=== PATIENT | female | born 1970 | race Caucasian/White ===

== ENCOUNTER 2020-10-20 12:45 | Emergency (ER) | payer SELFPAY ==
[2020-10-20] MEDS ORDERED: Sodium Chloride 0.9% 10 ML Syringe FLUSH PRN (13:03)
[2020-10-20 13:19] VITALS: PULSE 94
--- NOTE | 2020-10-20 13:24 | EDM.PDOC ---
ED HPI GENERAL MEDICAL PROBLEM - General Chief Complaint: Abdominal Pain Stated Complaint: STOMACH AND CHEST PAIN Time Seen by Provider: 10/20/20 12:55 Source of Information: Reports: Patient History Limitations: Reports: No Limitations - History of Present Illness INITIAL COMMENTS - FREE TEXT/NARRATIVE: presented to the ER with a c/o stomach pain - started last night - progressively getting worse. Worse with movement no N/D/V, but loss of appetite. patient has a h/o gastric lap band > 8 years ago. Also take ibuprofen and Oxycodone for chronic pain. no fever or chills. h/o cholecystectomy. No change in stools. Onset: Sudden Duration: Day(s): (1) Location: Reports: Abdomen Quality: Reports: Sharp Severity: Moderate Improves with: Reports: None Worsens with: Reports: Movement Associated Symptoms: Reports: Loss of Appetite Abdominal Pain Score (Numeric/FACES): 9 - Related Data Allergies Allergy/AdvReac Type Severity Reaction Status Date / Time morphine Allergy Facial Verified 10/20/20 13:11 Swelling Sulfa (Sulfonamide Allergy Hives Verified 10/20/20 13:11 Antibiotics) bee sting Allergy Difficulty Uncoded 10/20/20 13:15 Breathing Home Meds: Home Meds Ibuprofen 800 mg PO TID 11/15/13 [History] Hydrocodone/Acetaminophen [Hydrocodon-Acetaminophen 5-325] 1 each PO Q4H PRN 10/20/20 [History] Past Medical History HEENT History: Reports: Impaired Vision Cardiovascular History: Reports: Other (See Below) Other Cardiovascular History: allergies TECHNICAL ASST History: Reports: Musculoskeletal History: Reports: Back Pain, Chronic Other Musculoskeletal History: increased pain and inability to use right hand Neurological History: Reports: Headaches, Chronic, Migraines Psychiatric History: Reports: Anxiety, Depression Immunologic History: Reports: SLE - Infectious Disease History Infectious Disease History: Reports: Chicken Pox - Past Surgical History GI Surgical History: Reports: Appendectomy, Bariatric Procedure, Cholecystectomy Female Surgical History: Reports: Salpingo-Oophorectomy, Tubal Ligation Social & Family History - Family History Family Medical History: No Pertinent Family History - Living Situation & Occupation Occupation: Employed ED ROS GENERAL - Review of Systems Review Of Systems: See Below Constitutional: Reports: No Symptoms HEENT: Reports: No Symptoms Respiratory: Reports: No Symptoms Cardiovascular: Reports: No Symptoms GI/Abdominal: Reports: Abdominal Pain, Anorexia, Decreased Appetite. Denies: Black Stool, Bloody Stool, Diarrhea : Reports: No Symptoms Musculoskeletal: Reports: No Symptoms Skin: Reports: No Symptoms Neurological: Reports: No Symptoms ED EXAM, GI/ABD - Physical Exam Exam: See Below Exam Limited By: No Limitations General Appearance: Alert, WD/WN, Anxious, Mild Distress Eyes: Bilateral: EOMI Throat/Mouth: Normal Inspection Head: Atraumatic Neck: Normal Inspection Respiratory/Chest: No Respiratory Distress, Lungs Clear Cardiovascular: Normal Peripheral Pulses, Regular Rate, Rhythm GI/Abdominal Exam: Soft, No Distention, Tender (mild epigastric ) Back Exam: Normal Inspection, Full Range of Motion Extremities: Normal Inspection, Normal Range of Motion, Non-Tender Neurological: Alert, Oriented, Normal Cognition, No Motor/Sensory Deficits Psychiatric: Normal Affect, Anxious #1 Interpretation EKG Date: 10/20/20 Rhythm: NSR Sen[place]: Normal P-Wave: Present QRS: Normal ST-T: Normal QT: Normal Course - Vital Signs Last Recorded V/S: Last Vital Signs Temp 36.9 C 10/20/20 12:50 Pulse 94 10/20/20 15:30 Resp 16 10/20/20 15:30 BP 151/85 H 10/20/20 15:30 Pulse Ox 97 10/20/20 15:30 - Orders/Labs/Meds Orders: Active Orders 24 hr Category Date Time Status EKG Documentation Completion [RC] ASDIRECTED Care 10/20/20 13:03 Active Abdomen Pelvis wo Cont [CT] Stat Exams 10/20/20 14:20 Taken Chest 1V Frontal [CR] Stat Exams 10/20/20 13:11 Taken KUB [Abdomen 1V Flat] [CR] Stat Exams 10/20/20 13:11 Taken CORONAVIRUS COVID-19 RAPID [MOLEC] Stat Lab 10/20/20 16:43 Ordered Sodium Chloride 0.9% [Normal Saline] 1,000 ml Med 10/20/20 14:15 Active IV ASDIRECTED Sodium Chloride 0.9% [Saline Flush] Med 10/20/20 13:03 Active 10 ml FLUSH ASDIRECTED PRN Saline Lock Insert [OM.PC] Routine Oth 10/20/20 13:03 Ordered Medication Orders Sodium Chloride (Normal Saline) 1,000 mls @ 999 mls/hr IV ASDIRECTED EDIS Last Admin: 10/20/20 14:39 Dose: 999 mls/hr Documented by: TAO Sodium Chloride (Sodium Chloride 0.9% 10 Ml Syringe) 10 ml FLUSH ASDIRECTED PRN PRN Reason: Keep Vein Open Labs: Laboratory Tests 10/20/20 10/20/20 10/20/20 Range/Units 13:00 13:20 13:20 WBC 10.1 (4.0-11.0) K/uL RBC 3.23 L (3.80-5.80) M/uL Hgb 10.8 L (11.5-16.5) g/dL Hct 30.3 L (37.0-47.0) % MCV 94 (76-96) fL MCH 33.4 H (27.0-32.0) pg MCHC 35.6 H (31.0-35.0) g/dL RDW 12.1 (11.0-16.0) % Plt Count 341 D (150-500) K/uL MPV 8.6 (6.0-10.0) fL Sodium 129 L (136-145) mmol/L Potassium 4.2 (3.5-5.1) mmol/L Chloride 97 L (98-107) mmol/L Carbon Dioxide 23.1 (21.0-32.0) mmol/L Anion Gap 13.1 (5.0-15.0) mmol/L BUN 11 (8-26) mg/dL Creatinine 0.88 D (0.55-1.02) mg/dL Est Cr Clr Drug Dosing 56.43 mL/min Estimated GFR (MDRD) > 60 (>60) MLS/MIN BUN/Creatinine Ratio 12.5 (6-25) Glucose 96 (74-100) mg/dL Lactic Acid (0.4-2.0) mmol/L Calcium 8.8 (8.5-10.1) mg/dL Lactate Dehydrogenase 219 (81-234) U/L Troponin I < 0.017 (0.000-0.060) ng/mL Lipase 55 L (73-393) U/L Urine Color Urine Appearance (CLEAR) Urine pH (5.0-8.0) Ur Specific Warriors Mark (1.003-1.030) Urine Protein (NEGATIVE) mg/dL Urine Glucose (UA) (NEGATIVE) mg/dL Urine Ketones (NEGATIVE) mg/dL Urine Occult Blood (NEGATIVE) Urine Nitrite (NEGATIVE) Urine Bilirubin (NEGATIVE) Urine Urobilinogen (0.2-1.0) E.U./dL Ur Leukocyte Esterase (NEGATIVE) 10/20/20 10/20/20 Range/Units 13:50 14:20 WBC (4.0-11.0) K/uL RBC (3.80-5.80) M/uL Hgb (11.5-16.5) g/dL Hct (37.0-47.0) % MCV (76-96) fL MCH (27.0-32.0) pg MCHC (31.0-35.0) g/dL RDW (11.0-16.0) % Plt Count (150-500) K/uL MPV (6.0-10.0) fL Sodium (136-145) mmol/L Potassium (3.5-5.1) mmol/L Chloride (98-107) mmol/L Carbon Dioxide (21.0-32.0) mmol/L Anion Gap (5.0-15.0) mmol/L BUN (8-26) mg/dL Creatinine (0.55-1.02) mg/dL Est Cr Clr Drug Dosing mL/min Estimated GFR (MDRD) (>60) MLS/MIN BUN/Creatinine Ratio (6-25) Glucose (74-100) mg/dL Lactic Acid 0.9 (0.4-2.0) mmol/L Calcium (8.5-10.1) mg/dL Lactate Dehydrogenase (81-234) U/L Troponin I (0.000-0.060) ng/mL Lipase (73-393) U/L Urine Color Yellow Urine Appearance Clear (CLEAR) Urine pH 6.0 (5.0-8.0) Ur Specific Warriors Mark 1.020 (1.003-1.030) Urine Protein Negative (NEGATIVE) mg/dL Urine Glucose (UA) Negative (NEGATIVE) mg/dL Urine Ketones Trace H (NEGATIVE) mg/dL Urine Occult Blood Negative (NEGATIVE) Urine Nitrite Negative (NEGATIVE) Urine Bilirubin Small H (NEGATIVE) Urine Urobilinogen 0.2 (0.2-1.0) E.U./dL Ur Leukocyte Esterase Negative (NEGATIVE) Meds: Medications Generic Name Dose Route Start Last Admin Trade Name Desiree PRN Reason Stop Dose Admin Sodium Chloride 1,000 mls @ 999 mls/hr 10/20/20 14:15 10/20/20 14:39 Normal Saline IV 999 mls/hr ASDIRECTED EDIS Administration Sodium Chloride 10 ml 10/20/20 13:03 Sodium Chloride 0.9% 10 Ml Syringe FLUSH ASDIRECTED PRN Keep Vein Open Discontinued Medications Generic Name Dose Route Start Last Admin Trade Name Desiree PRN Reason Stop Dose Admin Al Hydroxide/Mg Hydroxide 30 ml 10/20/20 13:10 10/20/20 13:30 Gi Cocktail Oral Solution 30 Ml PO 10/20/20 13:11 30 ml ONETIME ONE Administration Hydromorphone HCl 0.5 mg 10/20/20 15:13 10/20/20 15:30 Hydromorphone 2 Mg/Ml Sdv IVPUSH 10/20/20 15:14 0.5 mg ONETIME ONE Administration Hydromorphone HCl Confirm 10/20/20 15:30 10/20/20 15:31 Hydromorphone 2 Mg/Ml Sdv Administered 10/20/20 15:31 Not Given Dose 2 mg .ROUTE .STK-MED ONE Metronidazole 500 mg/ Premix 100 mls @ 100 mls/hr 10/20/20 15:34 10/20/20 16:00 IV 10/20/20 16:33 100 mls/hr ONETIME ONE Administration Ciprofloxacin/Dextrose 400 mg/ 200 mls @ 200 mls/hr 10/20/20 15:34 Premix IV 10/20/20 16:33 ONETIME ONE Metronidazole Confirm 10/20/20 15:53 10/20/20 16:00 Flagyl In Ns 500 Mg/100 Ml Administered 10/20/20 15:54 Not Given Dose 100 mls @ as directed .ROUTE .STK-MED ONE Ciprofloxacin/Dextrose Confirm 10/20/20 15:53 10/20/20 16:00 Cipro In D5w 400 Mg/200 Ml Administered 10/20/20 15:54 Not Given Dose 200 mls @ as directed .ROUTE .STK-MED ONE Pantoprazole Sodium 40 mg 10/20/20 16:40 Pantoprazole 40 Mg Vial IVPUSH 10/20/20 16:41 ONETIME ONE - Re-Assessments/Exams Free Text/Narrative Re-Assessment/Exam: labs were ordered - no leukocytosis. xray abd KUB - showed a possible free air under diaphragm CT and/pelv - confirmed the above findings - possible perforation in the gastro- duodenal junction. IVF was given IV cipro/flagyl as well vital showed mild elevation in HR to 105, but BP 115/82 Departure - Departure Time of Disposition: 16:35 Disposition: DC/Tfer to Acute Hospital 02 Condition: Serious Clinical Impression: Perforated duodenal ulcer - Discharge Information *PRESCRIPTION DRUG MONITORING PROGRAM REVIEWED*: Not Applicable *COPY OF PRESCRIPTION DRUG MONITORING REPORT IN PATIENT FRANCK: Not Applicable Referrals: PCP,None [Primary Care Provider] - Forms: ED Department Discharge Sepsis Event Note (ED) - Evaluation Sepsis Screening Result: No Definite Risk - Focused Exam Vital Signs: Vital Signs Temp Pulse Resp BP Pulse Ox 10/20/20 15:30 94 16 151/85 H 97 10/20/20 13:30 85 16 139/73 10/20/20 12:50 36.9 C 94 18 148/75 H 94 L - Problem List & Annotations (1) Perforated duodenal ulcer SNOMED Code(s): 17461344 Code(s): K26.5 - CHRONIC OR UNSPECIFIED DUODENAL ULCER WITH PERFORATION Status: Acute Priority: High Current Visit: Yes - Problem List Review Problem List Initiated/Reviewed/Updated: Yes - My Orders Last 24 Hours: My Active Orders 10/20/20 13:03 EKG Documentation Completion [RC] ASDIRECTED Sodium Chloride 0.9% [Saline Flush] 10 ml FLUSH ASDIRECTED PRN Saline Lock Insert [OM.PC] Routine 10/20/20 13:11 Chest 1V Frontal [CR] Stat KUB [Abdomen 1V Flat] [CR] Stat 10/20/20 14:15 Sodium Chloride 0.9% [Normal Saline] 1,000 ml IV ASDIRECTED 10/20/20 14:20 Abdomen Pelvis wo Cont [CT] Stat 10/20/20 16:43 CORONAVIRUS COVID-19 RAPID [MOLEC] Stat - Assessment/Plan Last 24 Hours: My Active Orders 10/20/20 13:03 EKG Documentation Completion [RC] ASDIRECTED Sodium Chloride 0.9% [Saline Flush] 10 ml FLUSH ASDIRECTED PRN Saline Lock Insert [OM.PC] Routine 10/20/20 13:11 Chest 1V Frontal [CR] Stat KUB [Abdomen 1V Flat] [CR] Stat 10/20/20 14:15 Sodium Chloride 0.9% [Normal Saline] 1,000 ml IV ASDIRECTED 10/20/20 14:20 Abdomen Pelvis wo Cont [CT] Stat 10/20/20 16:43 CORONAVIRUS COVID-19 RAPID [MOLEC] Stat Plan: transfer to a higher level of care for surgery consultation and management NPO IVF and IV Abx were given as well discussed with the patient the importance of transfer to a facility with surgical expertise - she agreed but refused the ambulance ride - she wants to go by a private vehicle - discussed with the patient that refusing the ambulance means a delay of her treatment and antibiotic therapy as well as fluids - and might put her at high risk of and sepsis - she expressed her understand and still declined the transfer by EMS. [facility] - spoke to the surgeon oncmarkus Omer - who a ccepted the patient for a transfer to the ER
[2020-10-20] MEDS: GI Cocktail Oral Solution 30 ML PO ONE (13:30)
[2020-10-20] MEDS: Sodium Chloride 0.9% 1,000 ML IV SCH (14:39)
[2020-10-20] MEDS: HYDROmorphone 2 MG/ML SDV IVPUSH ONE (15:30)
[2020-10-20] MEDS: HYDROmorphone 2 MG/ML SDV ONE (15:31)
[2020-10-20] MEDS: Ciprofloxacin in D5W 200 ML ONE (16:00)
[2020-10-20] MEDS: metroNIDAZOLE/Normal Saline 100 ML ONE (16:00)
[2020-10-20] MEDS: metroNIDAZOLE/Normal Saline 500 MG in Premix Bag 1 BAG IV ONE (16:00)
[2020-10-20 16:36] VITALS: BP 151/85
[2020-10-20] MEDS: Ciprofloxacin in D5W 400 MG in Premix Bag 1 BAG IV ONE ×2 (17:05)
[2020-10-20] MEDS: Pantoprazole 40 MG Vial IVPUSH ONE (17:14)
[2020-10-20] MEDS: Pantoprazole 40 MG Vial ONE (17:24)
--- NOTE | 2020-10-21 13:34 | CR ---
DATE OF SERVICE: 10/20/2020 CLINICAL DATA: Pain. SUPINE ABDOMEN: There are surgical clips in the upper abdomen. There is a gastric banding device in place. There are multiple gas filled distended loops of small bowel in the mid and lower abdomen. No other significant findings. [id number] [facility]
--- NOTE | 2020-10-21 13:38 | CR ---
DATE OF SERVICE: 10/20/2020 CLINICAL DATA: Abd pain. PORTABLE CHEST: The heart size is at the upper limits of normal. The lungs appear clear. No pneumothorax. No pleural effusion. There is free air noted below the hemidiaphragms consistent with perforated viscus. No other significant findings. IMPRESSION: Free air below hemidiaphragms consistent with perforated viscus. The patient's physician was notified of the findings. [id number] [facility]
--- NOTE | 2020-10-21 13:44 | CT ---
DATE OF SERVICE: 10/20/2020 CLINICAL DATA: Abd pain. UNENHANCED ABDOMEN AND PELVIC CT: Multislice acquisition through the abdomen and pelvis without IV or oral contrast was performed. The patient is status post cholecystectomy, and there are surgical clips in the upper abdomen. There is a gastric banding device in place. There is a moderate amount of free air noted within the peritoneal cavity consistent with a perforated viscus. There is diffuse gastric wall thickening. This may be related to nondistended. Gastritis or infiltrating process should be considered. The liver is normal size. The patient is status post cholecystectomy. There is mild pneumobilia most likely related to the surgery. The spleen appears normal. The pancreas appears normal. The right and left adrenals appear normal. The right and left kidneys appear normal. No nephrocalcinosis of nephrolithiasis. No hydronephrosis or hydroureter. The bladder is fluid filled. It appears normal. There is a moderate amount of free fluid noted within the pelvis. There are fluid and gas filled distended loops of small bowel in the mid and lower abdomen and pelvis consistent with an obstruction or ileus. IMPRESSION: Pneumoperitoneum. The patient's physician was notified of the findings. Multiple other findings as discussed above. [id number] [facility]
== END 2020-10-20 18:05 ==
LOC: LB.ED 12:45
DX: K26.5 Chronic or unspecified duodenal ulcer with perforation (principal); Z88.6 Allergy status to analgesic agent; Z88.2 Allergy status to sulfonamides; Z91.030 Bee allergy status; Z20.822 Contact with and (suspected) exposure to COVID-19
CPT/HCPCS: 36415; 71045; 74018; 74176; 80048; 81003; 83605; 83615; 83690; 84484; 85027; 87635; 93005; 96365; 96367; 96375; 99285; A9270; C9113; J0744; J1170; J3490; J7030; U0002